=== PATIENT | female | born 1990 | race Two or more races ===

== ENCOUNTER 2018-08-17 18:35 | Emergency (ER) | payer OTHER ==
[~2018-08-17] VITALS: Ht 167.6 cm; Wt 85.3 kg
[2018-08-17 20:57] VITALS: BP 124/82
[2018-08-17] MEDS ORDERED: DERMOPLAST 60ML BOTTLE TOP ONE (21:30)
[2018-08-17] MEDS ORDERED: LACTULOSE 20Gm/30ML SOLN PO ONE (22:00)
== END 2018-08-17 22:00 | disposition home or self-care (01) ==
LOC: ER 18:38
DX: K64.4 Residual hemorrhoidal skin tags (principal); K59.00 Constipation, unspecified
CPT/HCPCS: 74018